=== PATIENT | female | born 1990 | race Caucasian/White ===

== ENCOUNTER → 2018-04-23 13:42 | Outpatient (CLI) | payer BC, SELFPAY ==
[2018-04-23 10:13] VITALS: BMI 26.9
[2018-04-23 15:49] LABS: Group B Strep DNA By PCR Negative (Negative); Internal Control PASS; Probe Check PASS; Specimen Processing Control PASS
== END ==
PROVIDERS: Referring Provider Nurse Practitioner Women's Health; Visit Provider Nurse Practitioner Women's Health
DX: Z34.90 Encounter for supervision of normal pregnancy, unspecified, unspecified trimester (principal)
CPT/HCPCS: 87081; 87653

== ENCOUNTER → 2018-04-30 11:26 | Outpatient (CLI) | payer BC, SELFPAY ==
[2018-04-23 10:13] VITALS: BMI 26.9
--- NOTE | 2018-04-30 11:30 | US_ITS ---
STUDY: SECOND AND THIRD TRIMESTER OBSTETRICAL ULTRASOUND - LIMITED REASON FOR EXAM: Female, 27 years old. Routine survey. LMP: August 11, 2017. PRIOR ULTRASOUND: None. TECHNIQUE: Transabdominal TECHNICAL QUALITY: Adequate. FINDINGS: There is a single intrauterine fetus. The fetus is in a cephalic presentation. There is demonstrated cardiac activity with a heart rate of 134 bpm. There is a normal amniotic fluid volume. The largest amniotic fluid pocket measures 2.4 cm x 4.7 cm. The amniotic fluid index (XAVI) is 9.3 cm. The placenta is anterior in location and is not low lying. There are Grade 2 placental changes. The cervix is not well visualized. BIOMETRY: BPD: 9.2 cm: 37 weeks, 4 days HC: 33.7 cm: 38 weeks, 5 days AC: 33.7 cm: 37 weeks, 5 days FL: 7.4 cm: 37 weeks, 6 days Age by LMP: 37 weeks, 4 days. FARHAN by LMP: May 17, 2018. age by current US: 38 weeks, 0 days. FARHAN by current US: May 14, 2018. Estimated weight: 3308 grams, +/- 483 grams, 66 percentile. Gender: Indeterminant US/OB Limited With Biometrics IMPRESSION: Single live intrauterine gestation with a mean gestational age of 38 weeks. Electronically Signed: Matt Monsivais MD at 15:52 EST Tel [phone], Service support ,
--- OUTSIDE RECORDS SUMMARY | 2018-07-02 22:37 | XMS RPT_ITS ---
:1990 Author Organization OHIP Support Name Relationship Address Phone LAURA ALFARO Unavailable [address] [facility] + [place] [address] TIECHE, BRANDON Unavailable 0 + [place] [address] UE Unavailable Unavailable Unavailable RUTT, LAURA Unavailable [address] [facility] + [place] [address] TIECHE, BRANDON Unavailable Unavailable + [place] [address] UE Unavailable Unavailable Unavailable RUTT, LAURA Unavailable [address] [facility] + [place] [address] TIECHE, BRANDON Unavailable Unavailable + [place] [address] UE Unavailable Unavailable Unavailable RUTT, LAURA Unavailable [address] [facility] + [place] [address] TIECHE, BRANDON Unavailable 0 + [place] [address] UE Unavailable Unavailable Unavailable RUTT, LAURA Unavailable [address] [facility] + [place] [address] TIECHE, BRANDON Unavailable 0 + [place] [address] UE Unavailable Unavailable Unavailable RUTT, LAURA Unavailable [address] [facility] + [place] [address] UE Unavailable Unavailable Unavailable RUTT, LAURA Unavailable [address] [facility] + [place] [address] TIECHE, BRANDON Unavailable Unavailable + [place] [address] UE Unavailable Unavailable Unavailable RUTT, LAURA Unavailable [address] [facility] + [place] [address] TIECHE, BRANDON Unavailable Unavailable + [place] [address] UE Unavailable Unavailable Unavailable LAURA ALFARO Unavailable [address] + [place] [address] TIECELESTINA, BRANDON Unavailable Unavailable + [place] [address] UE Unavailable Unavailable Unavailable Care Team Providers Name Role Phone SAUL SEWELL Attending Unavailable ASH, SAUL L Referring Unavailable ASH, SAUL L Referring Unavailable ASH, SAUL L Attending Unavailable HENRIQUE JOYNER Attending Unavailable ASH, SAUL L Referring Unavailable ASH, SAUL L Attending Unavailable ASH, SAUL L Referring Unavailable IVY STOUT Attending Unavailable ASH, SAUL L Referring Unavailable LUCA VENCES (CNM) Attending Unavailable RU, LUCA (CNM) Referring Unavailable Beatriz Rider Attending Unavailable Beatriz Rider Attending Unavailable Daniella, Molly Attending Unavailable Huntly, Kate Attending Unavailable HuntlyKate Referring Unavailable TonyBrionna Attending Unavailable Tony, Brionna Attending Unavailable Tony Brionna Attending Unavailable Huntly, Kate Attending Unavailable Huntly, Kate Referring Unavailable Primay Care Physicia, No Primary Care Unavailable Beatriz Rider Attending Unavailable PROBLEMS PROBLEMS DATE TYPE CONDITION / CODE ATTENDING STATUS SOURCE 05/01/2018 Unknown Z3A.37 - 37 weeks Adry Active [place] gestation of [facility] / Hospital Z3A.37(ICD-10) Repository 05/04/2018 Unknown Z34.90 - Encounter Kate Brewer Active [place] for supervision of [facility] normal , Hospital unspecified, Repository unspecified trimester / Z34.90(ICD-10) 05/04/2018 Unknown Z3A.36 - 36 weeks Kate Brewer Active [place] gestation of [facility] / Hospital Z3A.36(ICD-10) Repository 05/04/2018 Unknown O26.893 - Other DaniellaKate casarez Active [place] specified Community related conditions, Hospital third trimester / Repository O26.893(ICD-10) 05/04/2018 Unknown Z67.91 - DaniellaKate casarez Active [place] Unspecified blood Community type, Rh negative / Hospital Z67.91(ICD-10) Repository 05/04/2018 Unknown Z34.83 - Encounter Adry Active [place] for supervision of [facility] other normal Hospital , third Repository trimester / Z34.83(ICD-10) 05/04/2018 Unknown Z3A.35 - 35 weeks Adry Active [place] gestation of [facility] / Hospital Z3A.35(ICD-10) Repository 05/04/2018 Unknown Z87.59 - Personal Adry, Active [place] history of other [facility] complications of Hospital , Repository childbirth and the puerperium / Z87.59(ICD-10) 03/05/2018 Active 29 weeks gestation NA Active [facility] of / [facility] [place] Z3A.29(ICD-10) Repository 10/18/2017 Active Personal history of NA Active [facility] other complications [facility] [place] of , Repository childbirth and the puerperium / Z87.59(ICD-10) 02/01/2016 Active Encounter for NA Active [facility] supervision of [facility] [place] other normal Repository , unspecified trimester / Z34.80(ICD-10) 10/09/2017 Active Unknown / NA Active [facility] UNK(Unknown) [place] Repository PROCEDURES PROCEDURES No Procedure Records FoundRESULTS RESULTS [facility] OFFICE VISIT Observed: 05/01/2018 Status: F Source: [place] REPORT 10:47 AM [facility] REPOSITORY [facility] [address] [place] [address] OFFICE VISIT Date of Service: 05/01/18 MR#: [id number] Acct: [id number] Name: REDD ALFAROFELIX Shaikh Rep #: [id number] : 1990 Provider: Beatriz Rider MD Age/Sex: 27/F Location: [facility] [place] [facility] Status: Signed Intake Vital Signs05/01/18 Body Mass Index (BMI) 26.9 05/01/18 Weight: 163 lb 05/01/18 Blood Pressure 110/66 Intake Visit Reasons: 37 WK OB Chief Complaint: est ob Food And Beverage Service Manager Required: No Is patient in pain?: No Allergies penicillin G Allergy (Mild, Verified 05/01/18 10:21) Other Medications vitamin#30 30 mg iron-10 mg iron-folic acid 1 mg- omg3 capsule cap PO cap 03/26/18 [History Confirmed 05/01/18] Last Menstral Period: 08/10/17 Zika: Zika virus screening: Negative : No PFSH PFSH Surgical History History of tonsillectomy (Acute) Social History Smoking Status: Never smoker alcohol intake: never substance use type: does not use caffeine: Yes what type of physical activity do you participate in: none seatbelt use: always do you feel safe at home: Yes additional social history: Laura- HVAC Patient is a stay at home mom Pregancy History 3 Elective abortions Hx Para 2 Spontaneous abortions Past Pregnancies Del. DateName GA/Weeks Outcome Route Bth WeighInfant GeLabor LgtAnesthesiDel LocatProvider FOB t n h a n HPI 37 WK OB: Details: ENRIQUETA ALFARO is a 27 year old who presents for routine OB visit. OB Visit FARHAN Calculator Estimated Delivery Date 05/17/18 Based on LMP (certain) 08/10/17 Current WG 37w 5d Number 1 Expected Delivery Route/Plan Specific Issue/Plans flu vaccine: given tdap vaccine: given rhogam: given LARC form signed: nataliya labor support person: Laura pain management: epidural cut cord/dad catch: yes : yes PP control planned: IUD pp discussed possible routes of delivery and associated risks: [] special requests: [] Initial Weight: Not Recorded Date Weight BP Urine PrFHR FuHt Pres MoCTX DilationFetal StVisit NoProviderComments E ot v te GA G Effac lucose ed Visit Notes Visit Date: 05/01/18 no vb lof good fm no regular ctx. Beatriz Rider MD on 05/01/18 Visit Date: 04/23/18 Doing well. No VB, LOF ARIE Barrera on 04/23/18 Visit Date: 04/13/18 No visit notes to display Visit Date: 03/26/18 no vb lof good fm no regular ctx. Beatriz Rider MD on 03/26/18 Diagnostics Diagnostics Labs Pap Smear Negative 10/18/17 Obstetrics Ultrasound 04/30/18 Group B Strep DNA Negative (Negative) 04/23/18 Details: HIV: Urine Culture: Sequential Screen: NIPT Screen: Results [id number] Office Urine Glucose Negative Last Edit by Alma Rosa Pascal on 05/01/18 10:23 Office Urine Protein Negative Last Edit by Alma Rosa Pascal on 05/01/18 10:23 Assessment AND Plan Problems 1. Rh negative status during in third trimester O26.893 given rhogam at 28 weeks 2. 37 weeks gestation of Z3A.37 transfer of care from [facility]. 3. History of placenta abruption Z87.59 growth scan third trimester 4. Encounter for supervision of other normal in third trimester Z34.83 PRR FARHAN 05/17/18 surprise Brit Romero Laura; 1 hour glucose- 99 at [facility] Plan movement and labor precautions reviewed. ACOG trimester education reviewed and updated. see problem list details for updated plan management information and see below for orders placed at this visit. [place] appropriate handout given. Orders Orders: Coding Level of Care Code OB Routine Diagnoses Rh negative status during in third trimester O26.893 Trimester: third trimester 37 weeks gestation of Z3A.37 Weeks of gestation: 37 weeks History of placenta abruption Z87.59 Encounter for supervision of other normal in third trimester Z34.83 Normal : other normal Trimester: third trimester 05/01/18 1047 <Electronically signed by Beatriz Rider MD> Date Beatriz Rider MD Cosigner Signature: Date (if applicable) CC: OB LIMITED WITH Observed: 04/30/2018 Status: F Source: [facility] [employer] 11:30 AM [facility] REPOSITORY [facility] Imaging Services [address] [place] [address] OB Limited With Biometrics MR#: [id number] Acct: [id number] Name: ENRIQUETA ALFARO Rep #: [id number] : 1990 F 27 From: Matt Monsivais MD PCP: Care Physician, No Primary Status: REG CLI Study: OB Limited With Biometrics Date of Exam: 04/30/18 Exam# [id number] Ordering Dr: Kate Brewer STUDY: SECOND AND THIRD TRIMESTER OBSTETRICAL ULTRASOUND - LIMITED REASON FOR EXAM: Female, 27 years old. Routine survey. LMP: August 11, 2017. PRIOR ULTRASOUND: None. TECHNIQUE: Transabdominal TECHNICAL QUALITY: Adequate. FINDINGS: There is a single intrauterine fetus. The fetus is in a cephalic presentation. There is demonstrated cardiac activity with a heart rate of 134 bpm. There is a normal amniotic fluid volume. The largest amniotic fluid pocket measures 2.4 cm x 4.7 cm. The amniotic fluid index (XAVI) is 9.3 cm. The placenta is anterior in location and is not low lying. There are Grade 2 placental changes. The cervix is not well visualized. BIOMETRY: BPD: 9.2 cm: 37 weeks, 4 days HC: 33.7 cm: 38 weeks, 5 days AC: 33.7 cm: 37 weeks, 5 days FL: 7.4 cm: 37 weeks, 6 days Age by LMP: 37 weeks, 4 days. FARHAN by LMP: May 17, 2018. age by current US: 38 weeks, 0 days. FARHAN by current US: May 14, 2018. Estimated weight: 3308 grams, +/- 483 grams, 66 percentile. Gender: Indeterminant US/OB Limited With Biometrics IMPRESSION: Single live intrauterine gestation with a mean gestational age of 38 weeks. Electronically Signed: Matt Monsivais MD at 15:52 EST Tel [phone], Service support , CC: EVER Brewer; No Primary Care Physician Title Curator: Signed GROUP B STREP DNA Collected: 04/23/2018 Status: F Source: [place] BY PCR 2:14 PM [facility] REPOSITORY Order Comment: Source: Vaginal-Rectal TYPE CODE TESTS RESULT OUT OF RANGE REFERENCE UNITS LAB L8200.0100 Negative Normal GBS TEST Negative RESULT Performed By: #### L8200.0000 #### [facility] [address] [place], [address] [facility] OFFICE VISIT Observed: 04/23/2018 Status: F Source: [place] REPORT 10:40 AM [facility] REPOSITORY [facility] Care [address] [place] [address] OFFICE VISIT Date of Service: 04/23/18 MR#: [id number] Acct: [id number] Name: ENRIQUETA ALFARO Rep #: [id number] : 1990 Provider: EVER Brewer Age/Sex: 27/F Location: [facility] [facility] Status: Signed Intake Vital Signs04/23/18 Body Mass Index (BMI) 26.9 04/23/18 Height 5 ft 3 in 04/23/18 Weight: 162 lb 2 oz 04/23/18 Body Mass Index (BMI) 28.7 04/23/18 Blood Pressure 122/78 H Intake Visit Reasons: 36 WK OB Food And Beverage Service Manager Required: No Is patient in pain?: No Allergies penicillin G Allergy (Mild, Verified 04/23/18 10:12) Other Medications vitamin#30 30 mg iron-10 mg iron-folic acid 1 mg- omg3 capsule cap PO cap 03/26/18 [History Confirmed 04/23/18] Last Menstral Period: 08/10/17 Zika: Zika virus screening: Negative : No PFSH PFSH Surgical History History of tonsillectomy (Acute) Social History Smoking Status: Never smoker alcohol intake: never substance use type: does not use caffeine: Yes what type of physical activity do you participate in: none seatbelt use: always do you feel safe at home: Yes additional social history: Laura- HVAC Patient is a stay at home mom Pregancy History 3 Elective abortions Hx Para 2 Spontaneous abortions Past Pregnancies Del. DateName GA/Weeks Outcome Route Bth WeighInfant GeLabor LgtAnesthesiDel LocatProvider FOB t n h a n HPI 36 WK OB: Details: ENRIQUETA ALFARO is a 27 year old who presents for routine OB visit. OB Visit FARHAN Calculator Estimated Delivery Date 05/17/18 Based on LMP (certain) 08/10/17 Current WG 36w 4d Number 1 Expected Delivery Route/Plan Specific Issue/Plans flu vaccine: given tdap vaccine: given rhogam: given LARC form signed: declines labor support person: Laura pain management: epidural cut cord/dad catch: yes : yes PP control planned: IUD pp discussed possible routes of delivery and associated risks: [] special requests: [] Initial Weight: Not Recorded Date Weight BP Urine PFHR FuHt Pres MCTX DilatioFetal SVisit NProvideComment rot ov n t ote r s EGA Ef Gluco faced se 03/26/1157 lb 110/74 [id number] Active absent no vb l 8 e of good 32 fm no w 4d Negati regular ve ctx. Visit Notes Visit Date: 04/23/18 Doing well. No VB, LOF ARIE Barrera on 04/23/18 Visit Date: 04/13/18 No visit notes to display Visit Date: 03/26/18 no vb lof good fm no regular ctx. Beatriz Rider MD on 03/26/18 Diagnostics Diagnostics Details: HIV: Urine Culture: Sequential Screen: NIPT Screen: Results [id number] Office Urine Glucose Negative Last Edit by Brandi Cedeno on 04/23/18 10:11 Office Urine Protein Negative Last Edit by Brandi Cedeno on 04/23/18 10:11 Assessment AND Plan Problems 1. Encounter for supervision of other normal in third trimester Z34.83 FARHAN 05/17/18 Brit Ortiz Laura 2. History of placenta abruption Z87.59 growth scan third trimester 3. 36 weeks gestation of Z3A.36 transfer of care from [facility]. 4. Rh negative status during in third trimester O26.893; Z67.91 Plan Orders placed: GBs, growth US [facility] Reviewed of labor precautions, movement/kick counts ACOG trimester education reviewed and updated See problem list details for updated plan of care Gestational age appropriate handout given RTO: 1 week Orders Orders: Coding Level of Care Code OB Routine Diagnoses Encounter for supervision of other normal in third trimester Z34.83 Normal : other normal Trimester: third trimester History of placenta abruption Z87.59 36 weeks gestation of Z3A.36 Weeks of gestation: 36 weeks Rh negative status during in third trimester O26.893; Z67.91 Trimester: third trimester 04/23/18 1040 <Electronically signed by Kate SARGENT> Date Kate KIDDC Cosigner Signature: Date (if applicable) CC: Observed: 04/23/2018 Status: F Source: [place] CULTURE, GROUP B 12:00 AM [facility]US REPOSITORY OPAL Culture Group B Beta Streptococcus is not isolated. Performed By: #### M100.1800 #### [facility] [address] [place], [address] [facility] OFFICE VISIT Observed: 04/13/2018 Status: F Source: [place] REPORT 10:55 AM [facility] REPOSITORY [facility] [address] [place] [address] OFFICE VISIT Date of Service: 04/13/18 MR#: [id number] Acct: [id number] Name: ENRIQUETA ALFARO Rep #: [id number] : 1990 Provider: Beatriz Rider MD Age/Sex: 27/F Location: [facility] Status: Signed Intake Vital Signs04/13/18 Body Mass Index (BMI) 26.9 04/13/18 Height 5 ft 4 in 04/13/18 Weight: 161 lb 04/13/18 Body Mass Index (BMI) 27.6 04/13/18 Blood Pressure 118/64 Intake Visit Reasons: 34 WEEK OB Food And Beverage Service Manager Required: No Is patient in pain?: No Allergies penicillin G Allergy (Mild, Verified 04/13/18 10:24) Other Medications vitamin#30 30 mg iron-10 mg iron-folic acid 1 mg- omg3 capsule cap PO cap 03/26/18 [History Confirmed 04/13/18] Last Menstral Period: 08/10/17 Zika: Zika virus screening: Negative : No PFSH PFSH Surgical History History of tonsillectomy (Acute) Social History Smoking Status: Never smoker alcohol intake: never substance use type: does not use caffeine: Yes what type of physical activity do you participate in: none seatbelt use: always do you feel safe at home: Yes additional social history: Laura- HVAC Patient is a stay at home mom Pregancy History 3 Elective abortions Hx Para 2 Spontaneous abortions Past Pregnancies Del. DateName GA/Weeks Outcome Route Bth WeighInfant GeLabor LgtAnesthesiDel LocatProvider FOB t n h a n HPI 34 WEEK OB: Details: ENRIQUETA ALFARO is a 27 year old who presents for routine OB visit. OB Visit FARHAN Calculator Estimated Delivery Date 05/17/18 Based on LMP (certain) 08/10/17 Current WG 35w 1d Number 1 Expected Delivery Route/Plan Specific Issue/Plans flu vaccine: given tdap vaccine: given rhogam: given LARC form signed: labor support person: [] pain management: [] cut cord/dad catch: [] : [] PP control planned: [] discussed possible routes of delivery and associated risks: [] special requests: [] Initial Weight: Not Recorded Date Weight BP Urine PrFHR FuHt Pres MoCTX DilationFetal StVisit NoProviderComments E ot v te GA G Effac lucose ed Visit Notes Visit Date: 04/13/18 No visit notes to display Visit Date: 03/26/18 no vb lof good fm no regular ctx. Beatriz Rider MD on 03/26/18 Diagnostics Diagnostics Details: HIV: Urine Culture: Sequential Screen: NIPT Screen: Results [id number] Office Urine Glucose Negative Last Edit by Brionna Jimenez on 04/13/18 10:28 Office Urine Protein Negative Last Edit by Brionna Jimenez on 04/13/18 10:28 Assessment AND Plan Problems 1. 35 weeks gestation of Z3A.35 transfer of care from [facility]. 2. History of placenta abruption Z87.59 growth scan third trimester 3. Encounter for supervision of other normal in third trimester Z34.83 FARHAN 05/17/18 Brit Ortiz Laura Plan movement and labor precautions reviewed. ACOG trimester education reviewed and updated. see problem list details for updated plan management information and see below for orders placed at this visit. [place] appropriate handout given. Orders Orders: Coding Level of Care Code OB Routine Diagnoses 35 weeks gestation of Z3A.35 Weeks of gestation: 35 weeks History of placenta abruption Z87.59 Encounter for supervision of other normal in third trimester Z34.83 Normal : other normal Trimester: third trimester 04/13/18 1055 <Electronically signed by Beatriz Rider MD> Date Beatriz Rider MD [facility] Signature: Date (if applicable) CC: [facility] OFFICE VISIT Observed: 03/26/2018 Status: F Source: [place] REPORT 10:34 AM [facility] REPOSITORY [facility] Women[facility] [address] [place] [address] OFFICE VISIT Date of Service: 03/26/18 MR#: [id number] Acct: [id number] Name: ENRIQUETA ALFARO Rep #: [id number] : 1990 Provider: Beatriz Rider MD Age/Sex: 27/F Location: [facility] Status: Signed Intake Vital Signs03/26/18 Height 5 ft 4 in 12/17/18 Weight: 157 lb 03/26/18 Body Mass Index (BMI) 26.9 03/26/18 Blood Pressure 110/74 Intake Visit Reasons: 32 weeks-transfer of care/[facility] Chief Complaint: est ob Food And Beverage Service Manager Required: No Is patient in pain?: No Allergies penicillin G Allergy (Mild, Verified 03/26/18 09:59) Other Medications vitamin#30 30 mg iron-10 mg iron-folic acid 1 mg- omg3 capsule cap PO cap 03/26/18 [History Confirmed 03/26/18] Last Menstral Period: 08/10/17 Zika: Zika virus screening: Negative : No PFSH PFSH Surgical History History of tonsillectomy (Acute) Social History Smoking Status: Never smoker alcohol intake: never substance use type: does not use caffeine: Yes what type of physical activity do you participate in: none seatbelt use: always do you feel safe at home: Yes additional social history: Laura- HVAC Patient is a stay at home mom Pregancy History 3 Elective abortions Hx Para 2 Spontaneous abortions Past Pregnancies Del. DateName GA/Weeks Outcome Route Bth WeighInfant GeLabor LgtAnesthesiDel LocatProvider FOB t n h a n HPI 32 weeks-transfer of care/[facility]: Details: ENRIQUETA ALFARO is a 27 year old who presents for routine OB visit. OB Visit FARHAN Calculator Estimated Delivery Date 05/17/18 Based on LMP (certain) 08/10/17 Current WG 32w 4d Number 1 Expected Delivery Route/Plan Specific Issue/Plans flu vaccine: given tdap vaccine: given rhogam: given LARC form signed: labor support person: [] pain management: [] cut cord/dad catch: [] : [] PP control planned: [] discussed possible routes of delivery and associated risks: [] special requests: [] Initial Weight: Not Recorded Date Weight BP Urine PrFHR FuHt Pres MoCTX DilationFetal StVisit NoProviderComments E ot v te [place] G Effac lucose ed Visit Notes Visit Date: 03/26/18 no vb lof good fm no regular ctx. Beatriz Rider MD on 03/26/18 Diagnostics Diagnostics Details: HIV: Urine Culture: Sequential Screen: NIPT Screen: Results [id number] Office Urine Glucose Negative Last Edit by Alma Rosa Pascal on 03/26/18 10:04 Office Urine Protein Negative Last Edit by Alma Rosa Pascal on 03/26/18 10:04 Assessment AND Plan Problems 1. Encounter for supervision of other normal in third trimester Z34.83 Plan movement and labor precautions reviewed. ACOG trimester education reviewed and updated. see problem list details for updated plan management information and see below for orders placed at this visit. [place] appropriate handout given. Orders Orders: Coding Level of Care Code OB Routine Diagnoses Encounter for supervision of other normal in third trimester Z34.83 Normal : other normal 03/26/18 1034 <Electronically signed by Beatriz Rider MD> Date Beatriz Rider MD Cosign Signature: Date (if applicable) CC: ANTIBODY SCREEN Collected: 03/05/2018 Status: F Source: [place] 11:58 AM [facility] REPOSITORY TYPE CODE TESTS RESULT OUT OF REFERENCE UNITS RANGE LAB % Antibody NEG Screen Performed By: #### ASCR #### [facility] [employer] [address] [place] [address] 50G, 1HR GEST. Collected: 03/05/2018 Status: F Source: [place] GSCRN 11:55 AM [facility] REPOSITORY TYPE CODE TESTS RESULT OUT OF REFERENCE UNITS RANGE LAB GLUP 74-134 mg/dL Glucose 99 Screen, Preg Result Comment: [place] [employer] (Robles/Anju) guidelines state a gestational diabetes mellitus positive screen is made, in women not previously diagnosed with overt diabetes, when the 1 hr plasma glucose level is equal to or above 140 mg/dL. The [facility] Medical Planner and [facility] [place] recommends a 135 mg/dL cutoff. Performed By: #### GLTGST #### [facility] [employer] [address] [place], [place] [address] CBC AND DIFFERENTIAL Collected: 03/05/2018 Status: F Source: [place] 11:55 AM [facility] REPOSITORY TYPE CODE TESTS RESULT OUT OF REFERENCE UNITS RANGE LAB WBC 3.70-11.00 k/uL WBC 10.43 LAB RBC 3.90-5.20 m/uL Low RBC 3.81 LAB HGB 11.5-15.5 g/dL Low Hemoglobin 11.2 LAB HCT 36.0-46.0 % Low Hematocrit 34.6 LAB MCV 80.0-100.0 fL MCV 90.8 LAB MCH 26.0-34.0 pG MCH 29.4 LAB MCHC 30.5-36.0 g/dL MCHC 32.4 LAB RDWCV 11.5-15.0 % RDW-CV 13.1 LAB PLTCT 150-400 k/uL Platelet Count 253 LAB MPV 9.0-12.7 fL MPV 9.7 LAB ANEUT % Neut% 71.2 LAB AANEUT 1.45-7.50 k/uL Abs Neut 7.42 LAB ALYMP % Lymph% 20.9 LAB AALYMP 1.00-4.00 k/uL Abs Lymph 2.18 LAB AMONO % Mccurtain% 6.4 LAB AAMONO <0.87 k/uL Abs Mccurtain 0.67 LAB AEOS % Eosin% 1.2 LAB AAEOS <0.46 k/uL Abs Eosin 0.13 LAB ABASO % Baso% 0.3 LAB AABASO <0.11 k/uL Abs Baso 0.03 LAB AUNRBC 0 /100 WBC NRBCs High 0.1 LAB ABNRBC <0.01 k/uL Absolute High nRBC 0.01 LAB DTYP DTYPE Auto Diff Performed By: #### CBCDIF, HIV12C #### [facility] [employer] [address] [place], [place] [address] HIV 12 COMBO (AG/AB) Collected: 03/05/2018 Status: F Source: [place] 11:55 AM [facility] REPOSITORY TYPE CODE TESTS RESULT OUT OF REFERENCE UNITS RANGE LAB HVAGAB Non Reactive HIV Non Reactive 12 Ag/Ab Result Comment: (NOTE) HIV Information: [place] Rev. Code 3701.243(E): This information has been disclosed to you from confidential records protected from disclosure by state law. You shall make no further disclosure of this information without the specific, written, and informed release of the individual to whom it pertains, or as otherwise permitted by state law. A general authorization for the release of medical or other information is not sufficient for the purpose of the release of HIV test results or diagnoses. Performed By: #### CBCDIF, HIV12C #### [facility] [address], [place] [address] PROGRESS Observed: 01/02/2018 Status: COMPLETED Source: [place] 9:20 AM [facility] REPOSITORY HNO ID: [id number] Author: Saul Sewell Service: (none) Author Type: Physician Type: Progress Notes Filed: 01/02/2018 9:20 AM Note Text: Anatomy ultrasound reviewed. No abnormalities identified. Follow up as clinically indicated. Please place copy in ob chart. Saul Sewell MD PROGRESS Observed: 01/01/2018 Status: COMPLETED Source: [place] 4:19 PM [facility] REPOSITORY HNO ID: [id number] Author: Henrique Joyner Service: (none) Author Type: Physician Type: Progress Notes Filed: 01/01/2018 4:20 PM Note Text: A oreilly? fetus in utero with symmetric measurements Adequate growth (AGA). Estimated Date of Delivery: 05/17/18 EGA = 20w4d The anatomy appears normal. There are no evident malformations and /or effusions. No genetic markers are noted. The amniotic fluid volume is within normal limits. The sensitivity of ultrasound in the detection of malformations overall is approximately 35%. RECOMMENDATIONS: - Follow up ultrasound as clinically indicated PROGRESS Observed: 10/27/2017 Status: COMPLETED Source: [place] 7:47 AM [facility] REPOSITORY HNO ID: [id number] Author: Misty Grijalva Service: (none) Author Type: (none) Type: Progress Notes Filed: 10/27/2017 7:47 AM Note Text: Pap logged and normal pap letter mailed to patient. Misty Chiu Psr GC/CHLAMYDIA AMPLIF Collected: 10/19/2017 Status: F Source: [place] 2:30 PM [facility] REPOSITORY TYPE CODE TESTS RESULT OUT OF REFERENCE UNITS RANGE LAB GCCTSR GC/Chlam Amp Cervix Source LAB GCAMPL GC Negative Amplification for Neisseria gonorrhoeae by amplification. LAB CLAMPL Chlamydia Negative Amplif for Chlamydia trachomatis by amplification. Performed By: #### GCCT #### [facility] [address] [place], [place] [address] TOXICOLOGY SCREEN,UR Collected: 10/19/2017 Status: F Source: [place] 9:33 AM [facility] REPOSITORY TYPE CODE TESTS RESULT OUT OF REFERENCE UNITS RANGE LAB UPCP2 Negative Negative Phencyclidin e, Urine Result Comment: Cutoff threshold at 25 ng/mL. LAB UBENZ2 Negative Benzodiazepines, Ur Negative Result Comment: Cutoff threshold at 200 ng/mL. LAB UCOC2 Negative Cocaine, Negative Urine Result Comment: Cutoff threshold at 300 ng/mL. LAB UAMPH2 Negative Amphetamines, Urine Negative Result Comment: Cutoff threshold at 1000 ng/mL. LAB UTHC2 Negative Cannabinoids, Urine Negative Result Comment: Cutoff threshold at 50 ng/mL. LAB UOPI2 Negative Opiates, Negative Urine Result Comment: Cutoff threshold at 300 ng/mL. LAB UBARB2 Negative Barbiturates, Urine Negative Result Comment: Cutoff threshold at 200 ng/mL. LAB UETOH <11 mg/dL <11 Ethanol, Urine LAB UOXYC Negative Oxycodone, Negative Urine Result Comment: Cutoff threshold at 100 ng/mL. Comment: Immunoassay screen only. Cross reactivity with other substances can occur with immunoassay screening. Detection of any drug(s) in this urine toxicology panel is presumptive only. These tests are for med ical purposes only and should not be used for compliance monitoring, legal, or forensic use. Samples should be within normal physiological conditions (e.g. pH). This assay does not include adulteration/specimen validity testing. In clinical settings, confirmatory testing is at the practitioner's discretion [1]. If clinically indicated, confirmation by high specificity, quantitative methodology, which includes adulteration/spec imen validity testing, may be requested on the same specimen through Client Services ([phone]) if contacted within 48 hours of initial testing. [1]Substance Abuse and Mental Health Services Administration (2012). Clinical Drug Testing in Primary Care Technical Assistance Publication Series 32. Department of Health and Human Services, [place], p.10. These tests were developed and their performance characteristics determined by [facility]'s [facility] [place] ([facility]). They have not been cleared or a pproved by the FDA. [facility] is regulated under CLIA as qualified to perform high complexity testing. These tests are used for clinical purposes. They should not be regarded as investigational or for research. Performed By: #### UTOX2 #### [place] [address] Observed: 10/19/2017 Status: F Source: [place] URINE CULTURE 9:31 AM [facility] REPOSITORY Sp. Request/Comment: - Best Practice Alert: To ensure optimal transport conditions and accurate culture results transfer urine specimens to tirado top C and S preservative tube. Culture Result - No growth (<1,000 CFU/ml) Performed By: #### URCUL #### [place] [address] TYPE AND SCR,PRENATL Collected: 10/18/2017 Status: F Source: [place] 3:14 PM [facility] REPOSITORY TYPE CODE TESTS RESULT OUT OF REFERENCE UNITS RANGE LAB %ABR A ABO/RH(D) NEGATIVE LAB % Antibody NEG Screen Performed By: #### TSPN #### [place] [address] CBC Collected: 10/18/2017 Status: F Source: [place] 3:13 PM [facility] REPOSITORY TYPE CODE TESTS RESULT OUT OF REFERENCE UNITS RANGE LAB WBC 3.70-11.00 k/uL WBC High 11.11 LAB RBC 3.90-5.20 m/uL RBC 4.42 LAB HGB 11.5-15.5 g/dL Hemoglobin 12.5 LAB HCT 36.0-46.0 % Hematocrit 37.8 LAB MCV 80.0-100.0 fL MCV 85.5 LAB MCH 26.0-34.0 pG MCH 28.3 LAB MCHC 30.5-36.0 g/dL MCHC 33.1 LAB RDWCV 11.5-15.0 % RDW-CV 13.1 LAB PLTCT 150-400 k/uL Platelet Count 307 LAB MPV 9.0-12.7 fL MPV 9.2 LAB ABSNUC <0.01 k/uL Absolute nRBC <0.01 Performed By: #### CBC, SYPHGX, RUBIGG, HBSAG #### [place] [phone] SYPHILIS IGG WITH Collected: 10/18/2017 Status: F Source: [facility] 3:13 [facility] REPOSITORY TYPE CODE TESTS RESULT OUT OF REFERENCE UNITS RANGE LAB SYPHQL Nonreactive Syphilis IgG, Nonreactive Qual Result Comment: In conjunction with this result, the immune status of the patient should be evaluated based on their clinical status, related risk factors, and other diagnostic test results. LAB SYPHLG AI Syphilis IgG <0.2 Result Comment: Antibody index is interpreted as follows: Non reactive SPECIMENS <=0.8 Weak reactive SPECIMENS 0.9 to 5.9 Reactive SPECIMENS >=6.0 Performed By: #### CBC, SYPHGX, RUBIGG, HBSAG #### [place] [phone] RUBELLA IGG ANTIBODY Collected: 10/18/2017 Status: F Source: [place] 3:[address] [place] [address] REPOSITORY TYPE CODE TESTS RESULT OUT OF RANGE REFERENCE UNITS LAB RUBGQL Negative Abnormal Rubella IgG Positive Alert Ab, Qual Result Comment: Sample is considered positive for IgG antibodies to rubella virus. A positive result indicates previous exposure to Rubella virus or vaccination. LAB RUBQNT Index Value Rubella IgG Ab 2.86 Result Comment: Index values are interpreted as follows: Negative specimens <0.90 Equivocol specimens 0.90 to 0.99 Positive specimens >0.99 The magnitude of the measured result is not indicative of the amount of antibody present. Performed By: #### CBC, SYPHGX, RUBIGG, HBSAG #### [place] [id number] [place] [phone] HEPATITIS B SURF. AG Collected: 10/18/2017 Status: F Source: [place] 3:13 [facility] REPOSITORY TYPE CODE TESTS RESULT OUT OF REFERENCE UNITS RANGE LAB HBSAG Negative Hepatitis B Negative Surf. Ag Performed By: #### CBC, SYPHGX, RUBIGG, HBSAG #### [place] [phone] CYTOLOGY Observed: 10/18/2017 Status: F Source: [place] 2:38 PM [facility] REPOSITORY Specimen originated from [facility] Specimen #: [id number] Submitting Physician: SAUL SEWELL M.D. ([id number]) SPECIMEN SUBMITTED A: CERVICAL, SCREENING, FLUID FINAL DIAGNOSIS A. CERVICAL, SCREENING, FLUID Satisfactory for interpretation. Negative for intraepithelial lesion or malignancy. This specimen has been analyzed by the ThinPrep Imaging System, an automated imaging and review system, which assists the laboratory in evaluating cells on ThinPrep Pap tests. Following automated imaging, selected lorenzo from every slide are reviewed by a packaging sales consultant. DARIUS Conroy(ASCP) (Electronic Signature) CLINICAL DATA ROUTINE EXAM, HPV Testing: Yes, Reflex HPV for ASCUS Date of Last Menstrual Period: 08/02/2017 Menstrual History: STAINS A: CERVICAL, SCREENING, FLUID THIN PREP HOT BOX CHECKER Terri Burt M.D., Clinical Faculty Date of Report: 10/26/2017 Date of Procedure: 10/18/2017 Date of Receipt: 10/20/2017 Submitted by: SAUL SEWELL M.D. ([id number]) Location: [facility] Diagnostic interpretation performed at [facility], [address] [place] [address]. The Pap Smear is a screening test for cervical cancer. False negative results occur with all screening tests, emphasizing the need for rescreening at recommended intervals, and clinical correlation. PROGRESS Observed: 10/18/2017 Status: COMPLETED Source: [place] 1:49 PM [facility] REPOSITORY HNO ID: [id number] Author: Saul Sewell Service: (none) Author Type: Physician Type: Progress Notes Filed: 10/18/2017 2:40 PM Note Text: INITIAL OB ASSESSMENT OB Provider: Saul Sewell MD HPI: Enriqueta Alfaro is a 27 year old female here to establish Obstetrical Care. Patient's last menstrual period was 08/02/2017 (exact date). from OB Dating Form. Cycle length: irreg days only had 2 since last delivery Complaints: None was planned. Obstetric History T2 L2 SAB0 TAB0 Ectopic0 Multiple0 Live Births2 Prior : never History of 4th degree laceration: No Patient's Risk Screening for delivery: History of abnormal pap: No Prior treatment for cervical dysplasia: none. History of STDs: None Tobacco use: No Caffeine use: yes Drug use: No Alcohol use: No Multivitamin with Folic acid: Yes Occupation: homemaker Evangelical or heritage: No Would refuse blood transfusion if medically necessary: No No weight on file for this encounter. Patient BMI over 30? No Marital Status: Partner: Name: Laura Age: 28 Occupation: [employer] work Gender: male History of STDs: None PAST MEDICAL HISTORY Diagnosis Date - Anemia - Other acne - Placental abruption PAST SURGICAL HISTORY Procedure Laterality Date - EXCISION OF LINGUAL TONSIL ~ 4 yo - PAST SURGICAL HISTORY OF ~20 yo cyst removed on face Current Outpatient Prescriptions on File Prior to Visit: PNV COMB NO.59/IRON/FA/DHA (PNV #[id number] ORAL) Take by mouth once daily. No current facility-administered medications on file prior to visit. Review of Systems: GENERAL: Negative for: Fever or Chills HEENT: Negative for: Headache, Impaired Vision, Ringing in Ears, Nosebleeds NECK: Negative for: Swelling, Pain, Stiffness RESPIRATORY: Negative for: Cough, Shortness of breath, Wheezing GASTROINTESTINAL: Negative for: Heartburn, Constipation, Diarrhea, Blood in stool, Vomiting MUSCULOSKELETAL: Negative for: Muscle or joint pain, stiffness, Joint swelling NEUROLOGIC/PSYCHIATRIC: Negative for: Weakness, Paralysis, Numbness, Tingling, Tremor, Anxiety, Depression, Memory loss SKIN: Negative for: Rash, Itching GENITOURINARY: Negative for: vaginal itching, vaginal discharge, hematuria or dysuria PHYSICAL EXAM: LMP 08/02/2017 GENERAL: pleasant female in no apparent distress DERMATOLOGY: Normal, without lesions, non-icteric and non-hirsute NECK: Supple, full range of motion, no adenopathy and thyroid normal CHEST: Normal inspiratory effort BREAST: soft, non-tender, symmetric, no dominant mass, normal nipple-areolar complex, no lymphadenopathy and no nipple discharge ABDOMEN: soft, non-tender and no masses NEURO: alert and oriented x3,exam grossly non-focal PELVIS: External genitalia normal without lesions. Perineal body intact. No vaginal or cervical lesions. Cervix closed. Uterus 11 week size. No adnexal masses or tenderness. Clinical Pelvimetry: Pelvimetry clinically assessed as adequate Limited OB ultrasound exam: single intrauterine , positive cardiac activity, crown-rump length 26 mm and normal bilateral adnexa ASSESSMENT: 27 year old at 9w6d wks gestational age PLAN: 1) Patient oriented to practice. Discussed nutrition, folic acid supplementation, dietary guidelines, exercise, smoking, alcohol, caffeine, and drug use. Discussed routine OB labs including STD/HIV. Discussed aneuploidy screening options including serum screening and nuchal translucency. Patient declines all aneuploidy screening. CF carrier screening discussed and declined. Follow up in 4 weeks or sooner prn. Saul Sewell MD PROGRESS Observed: 10/09/2017 Status: COMPLETED Source: [place] 2:12 PM [facility] REPOSITORY [facility] ID: [id number] Author: Chyna Swanson RN Service: (none) Author Type: (none) Type: Progress Notes Filed: 10/09/2017 2:24 PM Note Text: #: 1, Date: 05/22/14, Sex: Female, Weight: 7 lb 5 oz (3.317 kg), GA: 39w6d, Delivery: Vaginal, Spontaneous Delivery, Apgar1: None, Apgar5: None, Living: Living, Comments: None #: 2, Date: 06/11/16, Sex: Female, Weight: 6 lb 13 oz (3.09 kg), GA: 38w3d, Delivery: Vaginal, Spontaneous Delivery, Apgar1: 8, Apgar5: 9, Living: Living, Comments: tear in placenta #: 3, Date: None, Sex: None, Weight: None, GA: None, Delivery: None, Apgar1: None, Apgar5: None, Living: None, Comments: None CNNURSE Observed: 10/09/2017 Status: COMPLETED Source: [place] 1:30 PM [facility] REPOSITORY Nurse Visit (WOOB) KARENNEELIMAENRIQUETA ([id number]) 1990 F Date Time Provider Department 10/09/17 1:30 PM NURSE PNOB [facility] W[facility] WOOB During your visit today, we recorded the following information about you: Last Period 08/02/17 Chyna Swanson RN 10/09/2017 2:03 PM Signed SEQUENTIAL SCREENINGS The [facility] offers sequential screenings for women who are interested in screenings for chromosomal abnormalities and certain defects during a . The sequential screen combines ultrasound and blood tests to determine the risk of chromosomal abnormalities, including Down's Syndrome (Trisomy 21) and Trisomy 18, as well as open neural tube defects including spina bifida. Ultrasound examination is performed between 11 weeks and 13 weeks gestational age. Blood tests are drawn after the ultrasound and again later in the between 15 and 21 weeks gestational age. Please let your physician know if you are interested in this testing. It will require an appointment with our community development technician. This is not an ultrasound performed by a physician in our office during a routine visit. SIGNS AND SYMPTOMS OF LABOR 1. Contractions every 10 minutes or more often 2. Clear, pink, or brownish fluid (water) leaking from vagina 3. Feeling that baby is pushing down, pressure 4. Low, dull backache 5. Cramps that feel like a period 6. Cramps with or without diarrhea If you notice any of the above symptoms, contact our office at [phone] and ask to speak with a nurse. After hours, you can call doctors registry at [phone] OR call [facility] at [phone] and ask to have the doctor telecommunications support paged. If you consider this an emergency, dial [phone]--1 or go to your nearest emergency department. Cord-Blood Banking Up until recently, the umbilical cord--along with the blood that remained in it after a baby was born and the cord cut--was simply discarded by the hospital. Then, in the late , researchers discovered that cord blood possessed unusual properties that made it useful in the treatment of patients with some cancers and other illnesses. While the actual process of collecting cord blood is straightforward, many parents are not even aware that this option now exists, much less familiar with all the issues involved. The case for saving your baby's cord blood The blood running back and forth between your baby and the placenta is full of immature cells called stem cells. Unlike embryonic stem cells, which have the ability to develop into any type of body cell, cord-blood stem cells already are locked into a certain, vital function: making all the different components of the blood, such as platelets, white blood cells, and red blood cells-serving, in effect, like bone marrow. When transfused into a patient whose own blood cells have faulty genetic coding or have been destroyed by chemotherapy or other cancer treatments, the cord-blood cells can implant themselves in the bone marrow and generate legions of new, healthy cells. These days, cord-blood transplants most commonly are used in cancer patients when a donor can't be found for a bone-marrow transplant. The treatment is particularly effective in young patients-the [facility] Cord Blood Bank reports a 70 percent success rate in children, but only 20 to 40 percent in adults. Researchers envision improving those odds and see many future applications as well, such as curing sickle cell disease and other blood-related genetic illnesses. So there is a possibility that your child, or someone else, may need these super-healthy and versatile cells one day. The drawbacks Aside from not knowing about this medical option, the main reason most people do not save their baby's stem cells is cost. In a private blood bank, the initial costs run from $275 to $1,500. Most also charge a yearly storage fee of $50 to $95. The advantage of using a private bank is that your sample is saved for only you to use. An alternative to private banking Public cord-blood jones are an alternative. These cost no money to use, but your sample is not specifically saved for you. Another person with a more immediate need may use it. If the time should come that you need stem cells, yours may still be available, or you may use donations from other people without charge. You also can direct your sample to go to a relative with an immediate need if the blood type matches. Anyone else needing to use stem cells from a public bank who has not been a donor must pay for it, sometimes tens of thousands of dollars. Will my family benefit from saving stem cells? Right now, situations in which stem cells would be helpful are quite rare. As mentioned earlier, stem-cell transplants are most commonly used for rare genetic conditions and for some types of cancer, including leukemia and lymphoma. And even with these present uses, many questions remain. In cancer treatment, for example, some researchers are concerned about the wisdom of transplanting back into the child the same cells that already showed a propensity to become malignant. Doctors also aren't sure if the number of cells taken at the time of would be enough to treat a full-grown 16-year-old. It is also not completely clear how active the cells would be after years of being stored. The treatment is so new and rare, we just don't have the data yet to resolve these important issues. What do the experts say? The [place] [employer] encourages philanthropic blood banking in public jones, but only for families with a current or potential need. Blood-bank proponents encourage any kind of banking, pointing out that research is getting closer and closer to many diverse, live-saving applications. How do I decide? Each family must weigh the pros and cons for themselves. Some families say that any cost is worth their peace of mind. Others say that in the face of uncertainty about the effectiveness of the treatment, they will use their resources elsewhere. Some choose the middle ground of donating publicly, knowing that their sample might benefit another family, if not themselves. For more information, ask your doctor or nurse, and be sure to check out our article on the technical aspects of cord-blood banking. Technical Aspects of Cord-Blood Banking If you are interested in storing your baby's umbilical-cord blood because of its possible use in emerging medical treatments, you must make arrangements with a blood bank before your child is born. The collection procedure is quite simple: After delivery of the baby, the umbilical cord is clamped and cut in the usual way. The blood that remains in the umbilical-cord vessels is then collected in sterile containers. The blood may be removed from the cord with a large needle or allowed to flow freely, depending on the company's collection system. The containers may look like large test tubes or like the plastic bags used in a blood bank. It does not cause the mother or the baby any pain to collect the blood, and no blood is taken that the baby needs at the moment. The nurse, heavy line technician, or physician will then label the samples, check them over with you, and package them for a special pickup arranged with a commercial carrier. When the blood arrives at the blood-bank facility, it is processed and the parents are notified. It is then kept in an advanced storage system for years. How do I know that my sample is safe? Power outages and bankruptcies potentially could threaten any organization, but so far none have been reported. It is to be hoped that the scientists in these jones would arrange for safe transfer to another facility if the need arose. YOU MUST MAKE ARRANGEMENTS AHEAD OF TIME! Public cord-blood jones--DONATION: [employer] [phone] [facility] Placental Blood [facility], [facility] Cord Blood [facility], Private cord-blood jones--SAVING FOR YOUR OWN USE: [employer], (I think this is the least expensive) [employer] [phone] [employer], [phone]) [employer] [place] [facility], [phone] Cells, [phone] [place] [facility], Cord Blood Registry, ([phone]) [facility], An Internet search may provide you with additional listings. Chyna Swanson RN 10/09/2017 2:24 PM Signed #: 1, Date: [birth year]/22/[birth year], Sex: Female, Weight: 7 lb 5 oz (3.317 kg), GA: 39w6d, Delivery: Vaginal, Spontaneous Delivery, Apgar1: None, Apgar5: None, Living: Living, Comments: None #: 2, Date: 06/11/16, Sex: Female, Weight: 6 lb 13 oz (3.09 kg), GA: 38w3d, Delivery: Vaginal, Spontaneous Delivery, Apgar1: 8, Apgar5: 9, Living: Living, Comments: tear in placenta #: 3, Date: None, Sex: None, Weight: None, GA: None, Delivery: None, Apgar1: None, Apgar5: None, Living: None, Comments: None Referring Provider: SELF [200] Allergies As of Date: 10/09/2017 Noted Allergy Reaction PENICILLIN 11/17/2015 2 - Rash PENICILLIN G 02/28/2005 Date Reviewed: 10/09/2017 Reviewed by: Chyna Swanson RN - Fully Assessed Reason for Visit: Care [86] Cmt: Pre-New OB Visit Diagnoses:History of placenta abruption [Z87.59] Rh negative state in antepartum period [O09.899] Family history of congenital heart defect [Z82.79] Prescriptions as of 10/09/2017 Sig: PNV #[id number] ORAL Take by mouth once daily. Problem List As Of Date 10/09/2017 Noted Resolved GENERALIZED HYPERHIDROSIS [R61] INVALID FOR* Normal in multigravida [Z34.80] INVALID FOR* History of placenta abruption [Z87.59] INVALID FOR* More... Rh negative state in antepartum period [O09.899]INVALID FOR* More... Family history of congenital heart defect [Z82.*INVALID FOR* More... Other instructions from your clinician: SEQUENTIAL SCREENINGS The [facility] offers sequential screenings for women who are interested in screenings for chromosomal abnormalities and certain defects during a . The sequential screen combines ultrasound and blood tests to determine the risk of chromosomal abnormalities, including Down's Syndrome (Trisomy 21) and Trisomy 18, as well as open neural tube defects including spina bifida. Ultrasound examination is performed between 11 weeks and 13 weeks gestational age. Blood tests are drawn after the ultrasound and again later in the between 15 and 21 weeks gestational age. Please let your physician know if you are interested in this testing. It will require an appointment with our community development technician. This is not an ultrasound performed by a physician in our office during a routine visit. SIGNS AND SYMPTOMS OF LABOR 1. Contractions every 10 minutes or more often 2. Clear, pink, or brownish fluid (water) leaking from vagina 3. Feeling that baby is pushing down, pressure 4. Low, dull backache 5. Cramps that feel like a period 6. Cramps with or without diarrhea If you notice any of the above symptoms, contact our office at [phone] and ask to speak with a nurse. After hours, you can call doctors registry at [phone] OR call [facility] at [phone] and ask to have the doctor telecommunications support paged. If you consider this an emergency, dial 12-09- or go to your nearest emergency department. Cord-Blood Banking Up until recently, the umbilical cord--along with the blood that remained in it after a baby was born and the cord cut--was simply discarded by the hospital. Then, in the late , researchers discovered that cord blood possessed unusual properties that made it useful in the treatment of patients with some cancers and other illnesses. While the actual process of collecting cord blood is straightforward, many parents are not even aware that this option now exists, much less familiar with all the issues involved. The case for saving your baby's cord blood The blood running back and forth between your baby and the placenta is full of immature cells called stem cells. Unlike embryonic stem cells, which have the ability to develop into any type of body cell, cord-blood stem cells already are locked into a certain, vital function: making all the different components of the blood, such as platelets, white blood cells, and red blood cells-serving, in effect, like bone marrow. When transfused into a patient whose own blood cells have faulty genetic coding or have been destroyed by chemotherapy or other cancer treatments, the cord-blood cells can implant themselves in the bone marrow and generate legions of new, healthy cells. These days, cord-blood transplants most commonly are used in cancer patients when a donor can't be found for a bone-marrow transplant. The treatment is particularly effective in young patients- the [facility] Cord Blood Bank reports a 70 percent success rate in children, but only 20 to 40 percent in adults. Researchers envision improving those odds and see many future applications as well, such as curing sickle cell disease and other blood-related genetic illnesses. So there is a possibility that your child, or someone else, may need these super-healthy and versatile cells one day. The drawbacks Aside from not knowing about this medical option, the main reason most people do not save their baby's stem cells is cost. In a private blood bank, the initial costs run from $275 to $1,500. Most also charge a yearly storage fee of $50 to $95. The advantage of using a private bank is that your sample is saved for only you to use. An alternative to private banking Public cord-blood jones are an alternative. These cost no money to use, but your sample is not specifically saved for you. Another person with a more immediate need may use it. If the time should come that you need stem cells, yours may still be available, or you may use donations from other people without charge. You also can direct your sample to go to a relative with an immediate need if the blood type matches. Anyone else needing to use stem cells from a public bank who has not been a donor must pay for it, sometimes tens of thousands of dollars. Will my family benefit from saving stem cells? Right now, situations in which stem cells would be helpful are quite rare. As mentioned earlier, stem-cell transplants are most commonly used for rare genetic conditions and for some types of cancer, including leukemia and lymphoma. And even with these present uses, many questions remain. In cancer treatment, for example, some researchers are concerned about the wisdom of transplanting back into the child the same cells that already showed a propensity to become malignant. Doctors also aren't sure if the number of cells taken at the time of would be enough to treat a full-grown 16-year-old. It is also not completely clear how active the cells would be after years of being stored. The treatment is so new and rare, we just don't have the data yet to resolve these important issues. What do the experts say? The [employer] encourages philanthropic blood banking in public jones, but only for families with a current or potential need. Blood-bank proponents encourage any kind of banking, pointing out that research is getting closer and closer to many diverse, live-saving applications. How do I decide? Each family must weigh the pros and cons for themselves. Some families say that any cost is worth their peace of mind. Others say that in the face of uncertainty about the effectiveness of the treatment, they will use their resources elsewhere. Some choose the middle ground of donating publicly, knowing that their sample might benefit another family, if not themselves. For more information, ask your doctor or nurse, and be sure to check out our article on the technical aspects of cord-blood banking. Technical Aspects of Cord-Blood Banking If you are interested in storing your baby's umbilical- cord blood because of its possible use in emerging medical treatments, you must make arrangements with a blood bank before your child is born. The collection procedure is quite simple: After delivery of the baby, the umbilical cord is clamped and cut in the usual way. The blood that remains in the umbilical-cord vessels is then collected in sterile containers. The blood may be removed from the cord with a large needle or allowed to flow freely, depending on the company's collection system. The containers may look like large test tubes or like the plastic bags used in a blood bank. It does not cause the mother or the baby any pain to collect the blood, and no blood is taken that the baby needs at the moment. The nurse, heavy line technician, or physician will then label the samples, check them over with you, and package them for a special pickup arranged with a commercial carrier. When the blood arrives at the blood- bank facility, it is processed and the parents are notified. It is then kept in an advanced storage system for years. How do I know that my sample is safe? Power outages and bankruptcies potentially could threaten any organization, but so far none have been reported. It is to be hoped that the scientists in these jones would arrange for safe transfer to another facility if the need arose. YOU MUST MAKE ARRANGEMENTS AHEAD OF TIME! Public cord-blood jones--DONATION: [employer] [phone] [facility] Placental Blood [facility], [facility] Umbilical Cord Blood [facility], Private cord-blood jones--SAVING FOR YOUR OWN USE: [employer], (I think this is the least expensive) [employer] [phone] [employer], (889) [employer] [place] [facility], [phone] 700-CORD Cells, [phone] [place] [facility], Cord Blood Registry, (147) [employer], An Internet search may provide you with additional listings. Disposition: Return in 9 days (on 10/18/2017) for New OB with Dr Sewell. Follow-up and Disposition History Recorded Encounter Status:Closed by CHYNA SWANSON RN on 10/09/17 ALLERGIES ALLERGIES DATE TYPE / CODE NAME / CODE REACTION SEVERITY SOURCE 05/01/2018 Drug penicillin Other [place] Ning Allergy/416 [id number](RXNO [facility] 246070([facility] ED CT) Repository 11/17/2015 DRUG PENICILLIN RASH [address] 785482(SN Repository ED CT) 02/28/2005 DRUG PENICILLIN G [facility] 207823(SN Repository ED CT) ENCOUNTERS ENCOUNTERS ADMIT/DISCHARGE ACCOUNT ADMITTING ENCOUNTER LOCATION SOURCE NUMBER CLASS 05/01/2018/05/01/19 [id number] Ambulatory BMSBuilding:B [place] [facility] Repository 04/30/[id number] [facility] ing:US Repository 04/23/[id number] [facility] ing:[facility] Repository 04/23/2018/04/23/19 [id number] Ambulatory BMSBuilding:B [place] [facility] Repository 04/13/2018/04/13/19 [id number] Ambulatory BMSBuilding:B [place] [facility] Repository 03/26/2018/03/26/20 [id number] Ambulatory BMSBuilding:B [place] [facility] Repository 03/05/2018 [id number] Ambulatory [facility] Repository 03/05/2018/03/05/20 [id number] Ambulatory [address] Repository 03/05/2018/03/06/20 [id number] Ambulatory [address] Repository 01/29/2018/01/31/20 [id number] Ambulatory [address] Repository 01/01/2018/01/03/20 [id number] Ambulatory [address] Repository 01/01/2018/01/03/20 [id number] Ambulatory [address] Repository 11/27/2017/11/29/19 [id number] Ambulatory [address] Repository 10/19/2017 [id number] Ambulatory [facility] Repository 10/19/2017/10/20/19 [id number] Ambulatory [address] Repository 10/18/2017/10/19/19 [id number] Ambulatory [address] Repository 10/18/2017 [id number] Ambulatory BMS [facility] Repository 10/18/2017/10/21/19 [id number] Ambulatory [address] Repository 10/09/2017/10/13/19 [id number] Ambulatory [address] Repository PAYERS PAYERS ENCOUNTER GUARANTOR PAYER SUBSCRIBER SOURCE 05/01/2018 ENRIQUETA M Primary LAURA RUTTDOB: [place] [id number] Insurance:ANTHEMPolic [id number] y Number: [place], [place] [address]Sam: [id number] Repository Date:[id number] () [address]WCSOXXM, [place] [address]JJ: 05/01/2018 Secondary NOT GIVENUNK [place] Insurance:SELF PAY [facility] Number: Effective Repository Date:2018-05-01 04/30/2018 ENRIQUETA M Primary LAURA RUTTDOB: [place] [id number] Insurance:ANTHEMPolic [id number] y Number: [place], [place] [address]Adi: [id number] Repository Date:4673-83-90[address] () 899432QSRGCHM, [place] [address]JG: 04/30/2018 Secondary NOT GIVENUNK N[place] Insurance:SELF PAY [facility] Number: Effective Repository Date:2018-04-23 04/23/2018 ENRIQUETA M Primary LAURA RUTTDOB: [place] [id number] Insurance:ANTHEMPolic [id number] y Number: [place], [place] [address]Bym: [id number] Repository Date:4803-32-03AL [address] () 227742RHEXNZV, [place] [address]VC: 04/23/2018 Secondary NOT GIVENUNK N[place] Insurance:SELF PAY [facility] Effective Repository Date:2018-04-23 04/23/2018 ENRIQUETA Shaikh Primary LAURA RUTTDOB: [place] [id number] Insurance:ANTHEMPolic [id number] Hospital y Number: [place], [place] [address]Qae: [id number] Repository Date:7557-60-05[address] () [address]YOTOL, [place] [address]PO: 04/23/2018 Secondary NOT GIVENUNK N[place] Insurance:SELF PAY [facility] Number: Effective Repository Date:2018-04-23 04/13/2018 ENRIQUETA Shaikh Primary LAURA RUTTDOB: [place] [id number] Insurance:ANTHEMPolic [id number] Hospital y Number: [place], [place] [address]Aux: [id number] Repository Date:5399-46-44RJ [address] () 401923YAOSVTI, [place] [address]SO: 04/13/2018 Secondary NOT GIVENUNK N[place] Insurance:SELF PAY [facility] Number: Effective Repository Date:2018-04-13 03/26/2018 EMA Ortiz Primary LAURA RUTTDOB: [place] [id number] Insurance:ANTHEMPolic [id number] Number: [place], [place] [id number] Repository [id number]: [phone]) Date:3103-99-42[phone] () 777478WIUSZQY, [place] [address]CE: 03/26/2018 Secondary NOT GIVENUNK Ning Insurance:SELF PAY [facility] Number: Effective Repository Date:2018-03-05 03/05/2018 ENRIQUETA M Primary LAURA RUTTDOB: [place] [id number] Insurance:ANTHEMPolic [id number] Hospital y Number: [place], [place] [id number]: [id number] Repository Date:9762-92-61TK [address] () 730831QDJZNJY, [place] [address]OH: 03/05/2018 Secondary NOT GIVENUNK [place] Insurance:SELF PAY [facility]: Effective Repository Date:2018-03-05 10/19/2017 ENRIQUETA M Primary LAURA RUTTDOB: [place] [id number] Insurance:ANTHEMPolic [id number] Hospital y Number: [place], [place] [address]Dne: [id number] Repository Date:6816-57-08[address] () 444172QOGEQYC, [place] [address]MI: 10/19/2017 Secondary NOT GIVENUNK [place] Insurance:SELF PAY [facility]: Effective Repository Date:2017-10-19 10/18/2017 ENRIQUETA M Primary LAURA RUTTDOB: [place] [id number] Insurance:ANTHEMPolic [id number] Hospital y Number: [place], [place] [id number]: [id number] Repository Date:8288-60-77HA [address] () 361501VELJXYH, [place] [address]DY: 10/18/2017 Secondary NOT GIVENUNK [place] Insurance:SELF PAY [facility]: Effective Repository Date:2017-10-18
== END ==
PROVIDERS: Referring Provider Nurse Practitioner Women's Health; Visit Provider Nurse Practitioner Women's Health
DX: Z87.59 Personal history of other complications of pregnancy, childbirth and the puerperium (principal)
CPT/HCPCS: 76816

== ENCOUNTER 2018-05-08 22:15 | Inpatient (IN) | payer BC, SELFPAY ==
[2018-05-08 10:23] VITALS: BMI 26.9
[2018-05-08] MEDS: Lactated Ringers 1,000 ML 50 ML IV ×2 (22:45→23:45)
[2018-05-08] MEDS: Ondansetron 4 MG/2 ML Vial IV (23:00)
[2018-05-08 23:09] VITALS: BMI 30.7
[2018-05-08 23:15] LABS: Hematocrit 33.8 % (37-47); Hemoglobin 11.4 g/dl (12.0-15.0); Mean Corp Hgb Conc 33.7 g/gl (32-36); Mean Corpuscular Hgb 28.9 pg (27.0-32.0); Mean Corpuscular Volume 85.8 fL (81-99); Mean Platelet Vol. 10.6 fl (6.2-12.0); Platelet Count 227 K/mm3 (150-450); RBC Distribution Width CV 13.3 % (11.6-14.6); RBC Distribution Width SD 41.2 fl (35.1-43.9); Red Blood Count 3.94 M/mm3 (4.2-5.4); Scan Indicated on CBC? Y/N NO; White Blood Count 13.4 K/mm3 (4.4-11.0)
[2018-05-08] MEDS: fentaNYL-bupivacaine (epidural) 100 ML BAG EPIDURAL (23:45)
--- NOTE | 2018-05-09 00:10 | HP.PCM_ITS ---
- Problem List (1) Active labor at term Status: Acute (2) Rh negative status during Status: Acute Qualifiers: Comment: given rhogam at 28 weeks (3) Status: Acute Qualifiers: Comment: transfer of care from [facility]. (4) History of placenta abruption Status: Acute Comment: growth scan third trimester (5) Supervision of normal Status: Acute Qualifiers: Comment: PRR FARHAN 05/17/18 surprise Brit Romero Dar; 1 hour glucose- 99 at [facility] History Date of Admission: 05/08/18 Final FARHAN: 05/17/18 Gestational age: 38 Weeks and 6 Days History of this : This is a 27 year-old, , at 38 weeks gestational age presents IAL 5-6 cm dilated no vb lof good fm Surgical History: Surgical History (Last Reviewed 05/08/18 @ 10:22 by Alma Rosa Pascal) History of tonsillectomy Z90.89 Allergies penicillin G Allergy (Mild, Verified 05/08/18 10:22) Other Home Medications: Home Medications vitamin#30 30 mg iron-10 mg iron-folic acid 1 mg-omg3 capsule 1 cap PO DAILY cap 03/26/18 Smoking Status: Never smoker Alcohol: None Number of Fetus(es): 1 Heart Tracin moderate variability reactive no decelerations category I tracing Cavalier: regular History Past Pregnancies: Past PregnanciesPregancy History 3 Elective abortions Hx Para 2 Spontaneous abortions Hx # Term Pregnancies Ectopic pregnancies Hx # Pregnancies Multiple births # of living children Past Pregnancies Del. Date Name GA/Weeks Outcome Route Bth Weight Gen Labor Lgth Anesthesia Del Locatn Provider FOB Unknown 2014 Kia live - full term Female Dr. Dmitry Villalta Unknown 2016 Brit live - full term Female Dr. Dmitry Villalta Labs: Mom's Problem List Problem Status Onset Code Active labor at term Acute Mom's Labs & Results 05/08/18 05/08/18 22:45 22:45 WBC 13.4 H RBC 3.94 L Hgb 11.4 L Hct 33.8 L MCV 85.8 MCH 28.9 MCHC 33.7 RDW 13.3 RDW Differential 41.2 Plt Count 227 MPV 10.6 Blood Type Pending Antibody Screen Pending Course Did the patient receive Yes care? Labs Blood Type: A RH: NEGATIVE RPR/VDRL/Syphilis Nonreactive Rubella status Immune HbSAg Negative Date Done: 10/18/17 Chlamydia Negative Gonorrhea Negative HIV/AIDS Non-Reactive Group B Strep: Negative Current Obstetrical History Gestational Diabetes No Incompetent Cervix No IUGR No Macrosomia No Hypertension/Pre-eclampsia No Placenta Previa/Abruption No PTL/PROM No Uterine anomaly No Oligohydramnios No Polyhydramnios No Multiple gestation No Past Medical History Asthma No Diabetes No Hypertension No Heart disease No Mitral valve prolapse No Neurologic/Seizure disorder/ No Migraines Kidney disease No Liver disease No Varicosities No Clotting disorders/Hx of DVT No Thyroid Dysfunction No Other medical diseases No Psychiatric disorders No Major trauma No Abnormal PAP smear No Sleep apnea No Mammogram in the last 2 years No Social History Marital Status: Alleged father dar Hx Smoking No Smoking Status Never smoker Expected Infant Delivery Method: Spontaneous Vaginal Review of Systems Constitutional: Denies: Fever, Malaise Eyes: Denies: Blurred vision, Vision Change HEENT: Denies: Head Aches, Visual Changes Cardiovascular: Denies: Chest Pain, Palpitations Respiratory: Denies: Cough, Shortness of Breath, Wheezing Gastrointestinal: Denies: Abdominal Pain, Diarrhea, Nausea, Vomiting Genitourinary: Denies: Dysuria, Hematuria Musculoskeletal: Denies: Joint Pain, Muscle pain Skin: Denies: Lesions, Rash Neurological: Denies: Blurred vision, Focal weakness, Headaches Psychiatric: Denies: Anxiety, Depression Endocrine: Denies: Heat/ Cold Intolerance Hematologic/ Lymphatic: Denies: Easy Bruising, Easy Bleeding Physical Exam General: Alert, Cooperative, No apparent distress HEENT: Atraumatic, Normocephalic. Negative for: Thyromegaly, Lymphadenopathy Cardiovascular: Regular rate Lungs: Normal air movement Abdomen: Soft, Non Tender, Gravid Neurological: Deep Tendon Reflexes 2+/4 and Symmetrical, Neuro grossly intact. Negative for: Clonus [employer]: Normal external genitalia. Negative for: Vulvar lesions Estimated gestational size: Appropriate for gestational size Presentation: Cephalic Cervix Dilation (cm): 5 Assessment/Plan All Active Problems (Last Reviewed 05/08/18 @ 10:22 by Alma Rosa Pascal) Active labor at term (Acute) Rh negative status during (Acute) (Acute) History of placenta abruption (Acute) Supervision of normal (Acute) This is a 27 year-old, , at 38 weeks gestational age presents IAL Patient presents IAL, plan expectant management for , pitocin/AROM PRN if needed. Pain management: plans epidural. GBS negative Management of any complications: none I have reviewed the [facility] and made any clinically relevant updates.
[2018-05-09] MEDS: Mag Hydrox/Al Hydrox/Simeth 30 ML UDC PO (01:27)
[2018-05-09] MEDS: Oxytocin 30 units/NS 500 ml 30 UNITS/500 ML IV.SOLN 334 UNITS IV (02:44)
--- NOTE | 2018-05-09 02:49 | PCM.OB.VAG ---
- Problem List (1) Active labor at term Status: Acute (2) Rh negative status during Status: Acute Qualifiers: Comment: given rhogam at 28 weeks (3) Status: Acute Qualifiers: Comment: transfer of care from [facility]. (4) History of placenta abruption Status: Acute Comment: growth scan third trimester (5) Supervision of normal Status: Acute Qualifiers: Comment: PRR FARHAN 05/17/18 surprise PC Brit Adam Patrick; 1 hour glucose- 99 at [facility] Vaginal Delivery Maternal Presentation: Active Labor ial Amniotic Membrane Rupture Type: Artificial Amniotic Fluid Description: Clear Final FARHAN: 05/17/18 Gestational age: 38 Weeks and 6 Days Date of Procedure: 05/09/18 Pre-Operative Diagnosis: ial Post-Operative Diagnosis: ial Surgery/ Procedure Performed: Spontaneous Vaginal Delivery Type of Anesthesia: Epidural Description of Procedure: Patient began pushing and delivered the head in the WILBUR presentation. The head was delivered atraumatically. The anterior and posterior shoulders delivered without complication followed by the rest of the infant and the was placed on the maternal abdomen. Delayed cord clamping was employed for approximately 60 seconds. Cord was clamped and cut and gentle traction was applied to the cord and the placenta delivered spontaneously immediately following it was noted to be intact with three-vessel cord. The perineum and vagina were inspected and noted to have no laceration. EBL was 100 cc. Patient and infant tolerated delivery well. Presentation: WILBUR Placental Delivery Description: Spontaneous Placenta Disposition: [facility] Cord Vessel Description: 3 Vessels Cord Entanglement: None Estimated Blood Loss: 100 A gender: Male (1 minute): 8 (5 minute): 9 Episiotomy Description: None Laceration: None Medications given after delivery: IV Pitocin Complications: None
[2018-05-09] MEDS: Oxytocin 30 units/NS 500 ml 30 UNITS/500 ML IV.SOLN 167 UNITS IV (03:08)
[2018-05-09] MEDS: Methylergonovine 0.2 MG/ML Ampul IM (03:49)
[2018-05-09] MEDS: 0.9% Saline Lock 10 ML Syringe IV (05:10)
[2018-05-09 05:15] VITALS: BP 117/72; PULSE 73; RESP 20
[2018-05-09 05:30] VITALS: TEMP 37.6
[2018-05-09] MEDS: Naproxen 250 MG Tablet PO ×2 (05:39→13:56)
--- NOTE | 2018-05-09 05:54 | NURSING ---
0510-lift pad and fermin pad weighed and total output was 417cc
[2018-05-09 08:00] VITALS: BP 127/82; PULSE 75; RESP 18; TEMP 37.4; O2SAT 98
[2018-05-09] MEDS: Senna/Docusate Sodium 1 Tablet PO (08:46)
[2018-05-09] MEDS: Acetaminophen 500 MG Tablet 1000 MG PO (10:49)
[2018-05-09 12:42] VITALS: BP 105/62; PULSE 80; RESP 16; TEMP 36.8; O2SAT 97
[2018-05-09 15:22] VITALS: BP 121/78; PULSE 73; RESP 16; TEMP 37.2; O2SAT 97
[2018-05-09 19:45] VITALS: BP 129/79; PULSE 90; RESP 15; TEMP 36.7
[2018-05-10 00:04] VITALS: BP 103/64; PULSE 75; RESP 16; TEMP 36.8
[2018-05-10 03:45] VITALS: BP 95/59; PULSE 75; RESP 16; TEMP 36.3
--- NOTE | 2018-05-10 07:43 | PCM.PN.OB ---
Patient Problems: Active and Suspected Problems (Last Reviewed 05/08/18 @ 10:22 by Alma Rosa Pascal) Active labor at term (Acute) Subjective: NO CP, SOB. Doing well. Plans home today - Physical Exam General: Alert, Oriented x3 Abdomen: Soft, Non Tender, - - FF below U Vital Signs Temp Pulse Resp BP Pulse Ox 97.4 F L 75 16 95/59 L 97 05/10/18 03:45 05/10/18 03:45 05/10/18 03:45 05/10/18 03:45 05/09/18 15:22 Oxygen Delivery Method Room Air Weight: 168 lb Body Mass Index (BMI) 30.7 Intake and Output for Last 24 Hours 05/08/18 05/09/18 05/10/18 23:59 23:59 23:59 Intake Total 2420 / 2420 Output Total 1317 / 1317 Balance 1103 / 1103 Medical Necessity - Tobacco Use Smoking Status: Never smoker Assessment/Plan All Active Problems (Last Reviewed 05/08/18 @ 10:22 by Alma Rosa Pascal) Active labor at term (Acute) Rh negative status during (Acute) (Acute) History of placenta abruption (Acute) Supervision of normal (Acute) PPD #1: Routine care. . Home today
--- NOTE | 2018-05-10 07:44 | PCM.DCVAG ---
Additional Instructions: If you experience any of the following, contact your healthcare provider. Bleeding that soaks a pad every hour for 2 hours Fever 100.4 or higher Unrelieved incision or abdominal pain Swelling, redness, discharge or bleeding from your incision or episiotomy site Your incision begins to separate Problems urinating (including inability to urinate or burning while urinating). Visual changes Severe headache Flu-like symptoms Pain or redness in one of both of your breasts Pain, warmth, tenderness or swelling in your legs, especially the calf area Frequent nausea and vomiting Symptoms of depression or anxiety If you experience any of the following, call 911 or go to the nearest Emergency Room. Chest pain Problems breathing Seizure activity Partial or complete paralysis of a body part, slurred speech, weakness or drooping of the face, or a sudden inability to walk or hold your balance Allergies/Adverse Reactions: Allergies penicillin G Allergy (Mild, Verified 05/08/18 10:22) Other Medications to take at Discharge vitamin#30 30 mg iron-10 mg iron-folic acid 1 mg-omg3 capsule 1 cap PO DAILY cap 03/26/18 Primary Care Physician: Care Physician,No Primary [Primary Care Provider] - Test Results: Test results from this visit will be discussed in further detail at your follow-up appointment, if applicable.
--- NOTE | 2018-05-10 07:45 | DCINST_ITS ---
Additional Instructions: If you experience any of the following, contact your healthcare provider. * Bleeding that soaks a pad every hour for 2 hours * Fever 100.4 or higher * Unrelieved incision or abdominal pain * Swelling, redness, discharge or bleeding from your incision or episiotomy site * Your incision begins to separate * Problems urinating (including inability to urinate or burning while urinating). * Visual changes * Severe headache * Flu-like symptoms * Pain or redness in one of both of your breasts * Pain, warmth, tenderness or swelling in your legs, especially the calf area * Frequent nausea and vomiting * Symptoms of depression or anxiety If you experience any of the following, call 911 or go to the nearest Emergency Room. * Chest pain * Problems breathing * Seizure activity * Partial or complete paralysis of a body part, slurred speech, weakness or drooping of the face, or a sudden inability to walk or hold your balance Allergies/Adverse Reactions: Allergies penicillin G Allergy (Mild, Verified 05/08/18 10:22) Other Medications to take at Discharge vitamin#30 30 mg iron-10 mg iron-folic acid 1 mg-omg3 capsule 1 cap PO DAILY cap 03/26/18 Primary Care Physician: Care Physician,No Primary [Primary Care Provider] - Test Results: Test results from this visit will be discussed in further detail at your follow- up appointment, if applicable.
[2018-05-10 08:00] VITALS: BP 105/66; PULSE 72; RESP 16; TEMP 36.4
[2018-05-10 13:15] VITALS: BP 109/70; PULSE 75; RESP 16; TEMP 36.9
== END 2018-05-10 13:50 | disposition home or self-care (01) | DRG 807 ==
PROVIDERS: Admitting Provider Obstetrics & Gynecology; Referring Provider Obstetrics & Gynecology; Visit Provider Obstetrics & Gynecology
DX: O80 Encounter for full-term uncomplicated delivery (principal); Z88.0 Allergy status to penicillin; Z3A.38 38 weeks gestation of pregnancy; Z37.0 Single live birth
CPT/HCPCS: 59025; 59050; 85027; 85461; 86850; 86900; 90384; J7120; A4216; J2405; J2790

== ENCOUNTER → 2022-10-21 | Outpatient (CLI) | payer SELFPAY ==
[2022-10-21 13:31] LABS: Erythrocyte Sedimentation Rate 11 mm/hr (0-30)
== END | disposition home or self-care (01) ==
PROVIDERS: Referring Provider Nurse Practitioner Acute Care; Visit Provider Nurse Practitioner Acute Care
DX: R53.81 Other malaise (principal)
CPT/HCPCS: 85652; 86140